=== PATIENT | male | born 1975 | race Caucasian/White ===

== ENCOUNTER → 2025-01-21 | Outpatient (REF) | payer OTHER | LOC: US 15:55 | PROVIDERS: ATTEND Urology | DX: R31.21 Asymptomatic microscopic hematuria (principal) | CPT/HCPCS: 74018; 76770; 76857 ==

== ENCOUNTER → 2025-02-08 | Day surgery (SDC) | payer OTHER ==
[2025-02-06 15:38] LABS: BASOPHILS % 0.2 % (0.0-1.0); EOSINOPHILS % 2.1 % (0.0-6.0); LYMPHOCYTES % 32.1 % (18.0-39.1); MONOCYTES % 6.6 % (4.4-11.3); NEUTROPHILS % 58.9 % (38.7-80.0); RED CELL DISTRIBUTION WIDTH 14.6 % (11.7-14.4)
[2025-02-06 16:03] LABS: EST GLOMERULAR FILTRATION RATE 67.0 ML/MIN (>=60)
[~2025-02-08] MED LIST: ACETAMINOPHEN 1000 MG/100 ML 100 ML IV ONE; DEXAMETHASONE SOD PHOS INJ 4 MG/ML SDV ONE; FENTANYL CITRATE/PF 100MCG/2 ML INJ ONE; LIDOCAINE HCL 2% LOCAL INJ 5 ML SDV VIAL INJ ONE; MIDAZOLAM HCL 2 MG/2 ML VIAL ONE; MULTI-VITAMIN1 EACH PO; ONDANSETRON HCL INJ 2MG/ML 2ML 2 MG/ML VIAL ONE; PROPOFOL IV EMULSION 10 MG/ML 20 ML VIAL ONE; SEVOFLURANE INHAL SOLN 250 ML PEN BTL ONE
[2025-02-08] MEDS: SODIUM CHLORIDE 0.9% 1000ML 1,000 ML ONE (07:16)
[2025-02-08] MEDS: CEFTRIAXONE 1 GM VIAL ONE (07:16)
[2025-02-08] MEDS: PHENAZOPYRIDINE HCL 100 MG TAB ONE (08:56)
[2025-02-08 09:24] VITALS: BP 144/96; PULSE 76; RESP 18; O2SAT 97
== END | disposition home or self-care (01) ==
LOC: OR 06:18
PROVIDERS: ATTEND Urology
DX: N35.819 Other urethral stricture, male, unspecified site (principal); N18.9 Chronic kidney disease, unspecified; N32.81 Overactive bladder; Z01.810 Encounter for preprocedural cardiovascular examination; Z01.812 Encounter for preprocedural laboratory examination
CPT/HCPCS: 36415 ×2; 52281; 74420; 80048; 84132; 85025; 93005; C1758; J0131; J0696; J1100; J2003; J2250; J2405; J2704; J3010; J7030